=== PATIENT | female | born 1995 | race Caucasian/White ===

== ENCOUNTER 2022-11-04 12:38 | Outpatient (CLI) | payer BC, SELFPAY ==
--- NOTE | 2022-11-04 13:00 | CRLHL7_ITS ---
For Patients: As a result of the Cures Act, medical imaging exams and procedure reports are released immediately into your electronic medical record. You may view this report before your referring provider. If you have questions, please contact your health care provider. INDICATION: First trimester scan, establish dates. COMPARISON: None. TECHNIQUE: Real-time smith-scale imaging of the pelvis was performed. FINDINGS: Sonographic imaging demonstrates a single living intrauterine gestation. The embryo demonstrates a regular cardiac rate measuring 163 beats per minute. The embryo`s crown-rump length measurement of 4.1 cm corresponds to a gestational age of 11 weeks 0 days with a sonographic due date of 05/26/2023. There is a normal-appearing yolk sac. There are no gross abnormalities noted within the embryo at this early state of development. The gestational sac has a normal appearance. There is no evidence of a perigestational hemorrhage. The amount of fluid within the sac appears appropriate for gestational age. The cervix is closed. The myometrium appears normal. The ovaries are of normal size. Corpus luteal cyst right ovary. There are no suspicious fluid collections noted in the cul-de-sac. IMPRESSION: Normal first trimester OB ultrasound exam. Gestational age calculated at 11 weeks 0 days with a sonographic due date of 05/26/2023. Dictated by Danilo Vinson MD @ 11/04/2022 1:30:54 PM (Electronically Signed)
== END 2022-11-04 12:39 | disposition home or self-care (01) ==
LOC: US 12:39
PROVIDERS: Visit Provider Advanced Practice Midwife
DX: Z34.91 Encounter for supervision of normal pregnancy, unspecified, first trimester (principal); Z3A.11 11 weeks gestation of pregnancy
CPT/HCPCS: 76817; 84443; 86592; 86703; 86762; 86787; 86803; 86850; 86900; 86901; 87086; 87340; 87491; 87591

== ENCOUNTER 2023-01-06 08:18 | Outpatient (CLI) | payer BC, SELFPAY ==
--- NOTE | 2023-01-06 08:15 | CRLHL7_ITS ---
For Patients: As a result of the Century Cures Act, medical imaging exams and procedure reports are released immediately into your electronic medical record. You may view this report before your referring provider. If you have questions, please contact your health care provider. INDICATION: Evaluate anatomy. COMPARISON: 11/04/2022 TECHNIQUE: Real time smith scale imaging of the fetus was performed as well as color Doppler analysis of the umbilical vessels. FINDINGS: Sonographic imaging demonstrates a single living intrauterine gestation. Fetus demonstrates a regular cardiac rate of 148 beats per minute. Fetus has a variable position. The placenta lies posteriorly without evidence of placenta previa. The edge of the placenta is located 8.5 cm from the internal cervical os. Amniotic fluid volume appears normal. Single deepest vertical pocket: 3.6 cm. The cervix is closed and measures 3.0 cm in length. The composite ultrasound gestational age is calculated at 20 weeks 3 days with an estimated sonographic due date of 05/23/2023. The estimated weight is 364 grams which lies at the 78th %. The following biometric measurements were obtained: Biparietal diameter: 4.8 cm/20 weeks 4 days 72nd% Head circumference: 17.9 cm/20 weeks 2 days 58th% Abdominal circumference: 15.6 cm/20 weeks 5 days 70th% Femur length: 3.3 cm/20 weeks 3 days 59th% The HC/AC ratio measures: 1.15 range (1.07-1.25) On anatomic survey, there is a normal appearance of the cerebral ventricles, cavum septi pellucidi, cisterna magna and cerebellum. The nose, lips, and facial profile appear normal. The cervical, thoracic and lumbar spine are well visualized and appear normal. Cardiac views are incompletely visualized due to position. The diaphragm and stomach appear normal. The kidneys and bladder also appear normal. There is a normal three-vessel cord and cord insertion site. The four extremities appear normal. IMPRESSION: Concordant clinical and sonographic dating. No intrinsic abnormalities noted on anatomic survey. However, the heart structures are not well evaluated due to position and short-term follow-up recommended. Dictated by Danilo Vinson MD @ 01/06/2023 10:31:53 AM (Electronically Signed)
== END 2023-01-06 08:19 | disposition home or self-care (01) ==
PROVIDERS: Visit Provider Advanced Practice Midwife
DX: Z34.92 Encounter for supervision of normal pregnancy, unspecified, second trimester (principal); Z3A.20 20 weeks gestation of pregnancy
CPT/HCPCS: 76805

== ENCOUNTER 2023-01-20 07:02 | Outpatient (CLI) | payer BC, SELFPAY ==
--- NOTE | 2023-01-20 07:15 | CRLHL7_ITS ---
For Patients: As a result of the Century Cures Act, medical imaging exams and procedure reports are released immediately into your electronic medical record. You may view this report before your referring provider. If you have questions, please contact your health care provider. INDICATION: Follow-up heart views COMPARISON: none TECHNIQUE: Real time smith scale imaging of the fetus was performed. FINDINGS: Cervix is closed and measures 4.2 cm. Vertex position. Posterior placenta. Normal 4 chamber heart. Normal outflow tracts. heart rate 145 beats per minute. Normal amniotic fluid with SDP 4.9 cm. IMPRESSION: Normal heart. Dictated by Danilo Vinson MD @ 01/20/2023 2:31:46 PM (Electronically Signed)
== END 2023-01-20 07:03 | disposition home or self-care (01) ==
LOC: US 07:03
PROVIDERS: Visit Provider Advanced Practice Midwife
DX: Z34.02 Encounter for supervision of normal first pregnancy, second trimester (principal)
CPT/HCPCS: 76816